=== PATIENT | female | born 1940 | race Caucasian/White ===

== ENCOUNTER 2023-05-22 18:21 | Emergency (ER) | payer MEDICARE ==
[~2023-05-22] VITALS: Ht 160 cm; Wt 68.0 kg
[2023-05-22 18:34] VITALS: BP 144/73; PULSE 97; RESP 24; TEMP 98.2; O2SAT 98
[2023-05-22 18:45] VITALS: PULSE 93; PULSE 98; RESP 18; RESP 20; O2SAT 100
[2023-05-22] MEDS: ALBUTEROL SULFATE/IPRATROPIU 3 ML SOL IH ONE (18:45)
[2023-05-22 19:54] LABS: BASOPHILS # (AUTO) 0.1 K/uL (0.00-0.22); BASOPHILS % (AUTO) 0.7 % (0.0-2.0); EOSINOPHILS # (AUTO) 0.2 K/uL (0-0.4); EOSINOPHILS % (AUTO) 1.9 % (0.0-4.0); HEMOGLOBIN 13.6 g/dL (12.0-16.0); LYMPHOCYTES # (AUTO) 3.9 K/uL (2.5-16.5); LYMPHOCYTES % (AUTO) 31.4 % (20.5-51.1); MEAN CORPUSCULAR HEMOGLOBIN 31 pg (27-31); MEAN CORPUSCULAR HGB CONC 33 g/dL (33-37); MEAN CORPUSCULAR VOLUME 92.9 fL (80-94); MONOCYTES % (AUTO) 8.3 % (1.7-9.3); NEUTROPHILS # (AUTO) 7.2 K/uL (1.8-7.7); NEUTROPHILS % (AUTO) 57.7 % (42.2-75.2); PLATELET COUNT (AUTO) 142 K/uL (140-450); RED BLOOD CELL COUNT(AUTO) 4.41 MIL/uL (4.20-5.40); RED CELL DISTRIBUTION WIDTH 13.1 % (11.6-13.7); WHITE BLOOD COUNT (AUTO) 12.4 K/uL (4.8-10.8)
[2023-05-22 20:01] LABS: BLOOD GAS BASE EXCESS 0.3 mmol/L (-2.0-2.0); BLOOD GAS HCO3 24.7 mmol/L (22-26); BLOOD GAS PH 7.419 (7.35-7.45); BLOOD GAS PO2 83.4 mmHg (75-100)
[2023-05-22 20:02] LABS: BLOOD GAS O2 SAT% 96.6 % (92.0-98.5)
[2023-05-22 20:11] LABS: CALCIUM 9.5 mg/dL (8.5-10.1); CARBON DIOXIDE 30.7 mmol/L (21-32); CHLORIDE 101 mmol/L (98-107); GLUCOSE 127 mg/dL (74-106); POTASSIUM 3.7 mmol/L (3.5-5.1); SODIUM SERUM 140 mmol/L (136-145); UREA NITROGEN, BLOOD 22 mg/dL (7-18)
[2023-05-22 20:12] LABS: INR 1.16 (0.8-1.2); PARTIAL THROMBOPLASTIN TIME 27.6 secs (22-35.6); PROTHROMBIN TIME 12.1 secs (10.8-13.4)
[2023-05-22 20:19] LABS: ALANINE AMINOTRANSFERASE 24 U/L (12-78); ALBUMIN 3.7 g/dL (3.4-5.0); ALKALINE PHOSPHATASE 94 U/L (50-136); ASPARTATE AMINOTRANSFERASE 34 U/L (15-37); BILIRUBIN,DIRECT 0.1 mg/dL (0.0-0.3); TOTAL BILIRUBIN 0.4 mg/dL (0.0-1.0); TOTAL PROTEIN, SERUM 8.5 g/dL (6.4-8.2)
[2023-05-22] MEDS: AZITHROMYCIN 500 MG in DEXTROSE 5% 250 ML IV ONE (20:40)
[2023-05-22 20:48] LABS: FLU A ANTIGEN negative (NEGATIVE); FLU B ANTIGEN NEGATIVE (NEGATIVE)
[2023-05-22] MEDS ORDERED: AZITHROMYCIN 500 MG INJ VIAL IV ONE (20:48)
[2023-05-22] MEDS ORDERED: cefTRIAXone 1,000 MG VIAL ONE (20:48)
[2023-05-22] MEDS: ASPIRIN 81 MG TAB.CHEW PO ONE (22:43)
[2023-05-23 11:20] VITALS: BP 150/67; PULSE 65; RESP 19; TEMP 98.1; O2SAT 97
== END 2023-05-23 11:20 | disposition short-term general hospital (02) ==
LOC: MED 18:21 → EDBD 18:21 → MED 05-23 11:20
DX: J96.01 Acute respiratory failure with hypoxia (principal); J18.9 Pneumonia, unspecified organism; Z20.822 Contact with and (suspected) exposure to COVID-19; E11.9 Type 2 diabetes mellitus without complications; K21.9 Gastro-esophageal reflux disease without esophagitis; I10 Essential (primary) hypertension
CPT/HCPCS: 36415; 36600; 71045; 80048; 80076; 81002; 82803; 83880; 84484; 85025; 85610; 85730; 87426; 87804; 93005; 94640; 96365; 96367; 99291; J0456; J0696